=== PATIENT | female | born 1990 | race Two or more races ===

== ENCOUNTER 2018-12-14 09:06 | Emergency (ER) | payer BC ==
[~2018-12-14] VITALS: Ht 149.9 cm; Wt 71.0 kg
[2018-12-14 09:11] VITALS: BP 175/83
[2018-12-14] MEDS ORDERED: dexamethasone 4mg tablet PO ONE ×2 (09:45→09:50)
[2018-12-14] MEDS ORDERED: dexamethasone 1mg tablet PO ONE (09:50)
== END 2018-12-14 10:00 | disposition home or self-care (01) ==
LOC: ER 09:07
DX: R21 Rash and other nonspecific skin eruption (principal); T78.40XA Allergy, unspecified, initial encounter; Z88.8 Allergy status to other drugs, medicaments and biological substances; Y92.89 Other specified places as the place of occurrence of the external cause
CPT/HCPCS: 99283; J8540